=== PATIENT | male | born 1980 | race American Indian/Alaskan Native ===

== ENCOUNTER 2019-04-12 06:49 | Emergency (ER) | payer OTHER ==
[2019-04-12 06:56] VITALS: BP 151/89
--- NOTE | 2019-04-12 10:14 | Emergency Department Report ---
- General Chief Complaint: Sore Throat Stated Complaint: SORE THROAT COUGH NASAL CONGESTION Time Seen by Provider: 04/12/19 09:14 Source: patient Mode of arrival: Ambulatory Limitations: No Limitations - History of Present Illness Initial Comments: 38-year-old [place]ic female department complaining of cough congestion coryza and a Salter last for about 1 week not responding to TheraFlu, as, Lamine is due to travel to his home town this week for a wants to have his symptoms resolved. Reports a lot of coughing at night when he is lying down with yellow mucus. Production. No chest pain. He also is worried about a little rash forming around his lips which is been present for the last couple of weeks. MD Complaint: cough, sore throat, rhinorrhea, nasal congestion Severity: mild Quality: dull Consistency: constant Improves With: nothing Worsens With: nothing Associated Symptoms: chills, rhinorrhea, nasal congestion, sore throat, cough. denies: right sweats, epistaxis, hoarseness Treatments Prior to Arrival: none - Related Data Previous Rx's Medication Instructions Recorded Last Taken Type Azithromycin [Zithromax] 500 mg PO QDAY #3 tablet 04/12/19 Unknown Rx Ciclopirox 0.77% (Nf) [Loprox 1 applic TP BID #15 tube 04/12/19 Unknown Rx 0.77% (Nf)] guaiFENesin/CODEINE [Robitussin AC] 5 ml PO Q6H PRN #120 ml 04/12/19 Unknown Rx predniSONE [Deltasone] 50 mg PO QDAY #5 tab 04/12/19 Unknown Rx Allergies Allergy/AdvReac Type Severity Reaction Status Date / Time No Known Allergies Allergy Unverified 04/12/19 06:53 ED Review of Systems ROS: Stated complaint: SORE THROAT COUGH NASAL CONGESTION Other details as noted in HPI Comment: All other systems reviewed and negative ED Past Medical Hx - Past Medical History Previous Medical History?: No - Surgical History Past Surgical History?: No - Social History Smoking Status: Never Smoker Substance Use Type: None - Medications Home Medications: Home Medications Medication Instructions Recorded Confirmed Last Taken Type Azithromycin [Zithromax] 500 mg PO QDAY #3 tablet 04/12/19 Unknown Rx Ciclopirox 0.77% (Nf) [Loprox 1 applic TP BID #15 tube 04/12/19 Unknown Rx 0.77% (Nf)] guaiFENesin/CODEINE [Robitussin AC] 5 ml PO Q6H PRN #120 ml 04/12/19 Unknown Rx predniSONE [Deltasone] 50 mg PO QDAY #5 tab 04/12/19 Unknown Rx ED Physical Exam - General Limitations: No Limitations General appearance: alert, in no apparent distress - Head Head exam: Present: atraumatic, normocephalic - Eye Eye exam: Present: normal appearance, PERRL, EOMI Pupils: Present: normal accommodation - ENT ENT exam: Present: normal exam, mucous membranes moist, TM's normal bilaterally - Neck Neck exam: Present: normal inspection - Respiratory Respiratory exam: Present: normal lung sounds bilaterally. Absent: respiratory distress - Cardiovascular Cardiovascular Exam: Present: regular rate, normal rhythm. Absent: systolic murmur, diastolic murmur, rubs, gallop - GI/Abdominal GI/Abdominal exam: Present: soft, normal bowel sounds - Rectal Rectal exam: Present: deferred - Extremities Exam Extremities exam: Present: normal inspection, full ROM, normal capillary refill - Back Exam Back exam: Present: normal inspection. Absent: CVA tenderness (R), CVA tenderness (L) - Neurological Exam Neurological exam: Present: alert, oriented X3, CN II-XII intact, normal gait - Psychiatric Psychiatric exam: Present: normal affect, normal mood - Skin Skin exam: Present: warm, dry, intact, normal color. Absent: rash, cyanosis, diaphoretic, urticaria, petechiae, abrasion, ecchymosis ED Course Vital Signs 04/12/19 04/12/19 06:53 06:54 Temperature 98.2 F 98.2 F Pulse Rate 68 69 Respiratory 18 18 Rate Blood Pressure 151/89 151/89 O2 Sat by Pulse 96 97 Oximetry ED Medical Decision Making - Medical Decision Making 38-year-old -[place] male presents emergency department complaining of cough congestion and coryza worse with lying down. After examination symptoms appear to be associated with a evolving respiratory tract infection//bronchitis. There is no hemoptysis or chest pain. He has stable vital signs. And no signs of any urgent or emergent medical conditions. Also he is complaining about a rash to his lips which appears to be of a fungal origin.Does not appear at this time to be erythema multiforme, bullous, SJS, TEN; no evidence at this time to suggest RMSF or endocarditis or Lyme disease; patient looks well, nontoxic and is tolerating oral intake; no neurologic signs or symptoms; no headache or photophobia or neck pain; no ev of sepsis; question viral exanthema; afebrile; appropriate for initial o/p tx; d/w pt importance of f/u and pt agr ees/understands; told pt to return to nearest ER immediately for any worsening ssx incl but not limited to: fever, spreading rash, pain, sore throat, headache, dizziness, chest pain, trouble breathing, or any ssx concerning to the patient. I did d/w pt the aforementioned ddx as possibilities and pt understands to f/u even if better and to return to ER if un-changed/worse. Pt understands these instructions on d/c and is comfortable with discharge plan. - Differential Diagnosis bronchitis, pneumonia, allergic rhinitis, vitamin mineral deficiency Critical care attestation.: If time is entered above; I have spent that time in minutes in the direct care of this critically ill patient, excluding procedure time. ED Disposition Clinical Impression: Cough, Tinea, URI (upper respiratory infection) Disposition: [id number] TO HOME OR SELFCARE Is pt being admited?: No Does the pt Need Aspirin: No Condition: Stable Instructions: Cold Symptoms (ED), Acute Cough (ED), Tinea Corporis (ED) Prescriptions: predniSONE [Deltasone] 50 mg PO QDAY #5 tab Ciclopirox 0.77% (Nf) [Loprox 0.77% (Nf)] 1 applic TP BID #15 tube guaiFENesin/CODEINE [Robitussin AC] 5 ml PO Q6H PRN #120 ml PRN Reason: Cough Azithromycin [Zithromax] 500 mg PO QDAY #3 tablet Referrals: PRIMARY CARE, [Primary Care Provider] - 3-5 Days [facility] [Provider Group] - 3-5 Days Forms: Work/School Release Form(ED)
== END 2019-04-12 10:28 | disposition home or self-care (01) ==
LOC: ED 06:49
DX: J06.9 Acute upper respiratory infection, unspecified (principal); B35.9 Dermatophytosis, unspecified; Z79.899 Other long term (current) drug therapy
CPT/HCPCS: 87116; 87430; 99283

== ENCOUNTER 2019-04-15 02:58 | Emergency (ER) | payer OTHER ==
[2019-04-15 03:06] VITALS: BP 137/86
[2019-04-15] MEDS ORDERED: dexAMETHasone 20 MG/5 ML VIAL IM ONE (04:15)
[2019-04-15] MEDS ORDERED: LIDOCAINE-MPF (1%) 10 MG/1 ML VIAL 5 ML INFILTRATI ONE (04:15)
--- NOTE | 2019-04-15 04:25 | Emergency Department Report ---
ED General Adult HPI - General Chief complaint: Sore Throat Stated complaint: SORE THROAT Time Seen by Provider: 04/15/19 04:14 Source: patient Mode of arrival: Ambulatory Limitations: No Limitations - History of Present Illness Initial comments: mr. pike presents for ed for continued cough productive yellow/green now, sore throat, and noc fever. pt has hx of bronchitis, was tx for same last week with rx for azithromycin, states symptoms remain. Onset/Timin -: week(s) Severity scale (0 -10): 4 Quality: aching Consistency: constant Improves with: none Worsens with: other (cough) Associated Symptoms: cough, fever/chills Treatments Prior to Arrival: none - Related Data Previous Rx's Medication Instructions Recorded Last Taken Type Azithromycin [Zithromax] 500 mg PO QDAY #3 tablet 04/12/19 Unknown Rx Ciclopirox 0.77% (Nf) [Loprox 1 applic TP BID #15 tube 04/12/19 Unknown Rx 0.77% (Nf)] guaiFENesin/CODEINE [Robitussin AC] 5 ml PO Q6H PRN #120 ml 04/12/19 Unknown Rx predniSONE [Deltasone] 50 mg PO QDAY #5 tab 04/12/19 Unknown Rx ALBUTEROL Inhaler (OR & NICU) 2 puff IH Q6H PRN #1 each 04/15/19 Unknown Rx [ProAir HFA Inhaler] Benzonatate [Tessalon Perles] 100 mg PO Q8HR PRN #30 capsule 04/15/19 Unknown Rx Doxycycline Hyclate [Doxycycline 100 mg PO BID 10 Days #20 tab 04/15/19 Unknown Rx Hyclate TAB] Ibuprofen [Motrin 800 MG tab] 800 mg PO Q8HR PRN #30 tablet 04/15/19 Unknown Rx Allergies Allergy/AdvReac Type Severity Reaction Status Date / Time No Known Allergies Allergy Unverified 04/12/19 06:53 ED Review of Systems ROS: Stated complaint: SORE THROAT Other details as noted in HPI Constitutional: denies: chills, fever Eyes: denies: eye pain, eye discharge, vision change ENT: throat pain, congestion. denies: ear pain Respiratory: cough. denies: shortness of breath, wheezing Cardiovascular: denies: chest pain, palpitations Endocrine: no symptoms reported Gastrointestinal: denies: abdominal pain, nausea, diarrhea Genitourinary: denies: urgency, dysuria Musculoskeletal: denies: back pain, joint swelling, arthralgia Skin: denies: rash, lesions Neurological: denies: headache, weakness, paresthesias Psychiatric: denies: anxiety, depression Hematological/Lymphatic: denies: easy bleeding, easy bruising ED Past Medical Hx - Past Medical History Previous Medical History?: No - Surgical History Past Surgical History?: No - Social History Smoking Status: Current Every Day Smoker Substance Use Type: None - Medications Home Medications: Home Medications Medication Instructions Recorded Confirmed Last Taken Type Azithromycin [Zithromax] 500 mg PO QDAY #3 tablet 04/12/19 Unknown Rx Ciclopirox 0.77% (Nf) [Loprox 1 applic TP BID #15 tube 04/12/19 Unknown Rx 0.77% (Nf)] guaiFENesin/CODEINE [Robitussin AC] 5 ml PO Q6H PRN #120 ml 04/12/19 Unknown Rx predniSONE [Deltasone] 50 mg PO QDAY #5 tab 04/12/19 Unknown Rx ALBUTEROL Inhaler (OR & NICU) 2 puff IH Q6H PRN #1 each 04/15/19 Unknown Rx [ProAir HFA Inhaler] Benzonatate [Tessalon Perles] 100 mg PO Q8HR PRN #30 capsule 04/15/19 Unknown Rx Doxycycline Hyclate [Doxycycline 100 mg PO BID 10 Days #20 tab 04/15/19 Unknown Rx Hyclate TAB] Ibuprofen [Motrin 800 MG tab] 800 mg PO Q8HR PRN #30 tablet 04/15/19 Unknown Rx ED Physical Exam - General Limitations: No Limitations General appearance: alert, in no apparent distress - Head Head exam: Present: atraumatic, normocephalic - Eye Eye exam: Present: normal appearance - ENT ENT exam: Present: mucous membranes moist, TM's normal bilaterally, normal external ear exam - Expanded ENT Exam Expanded Throat exam: Positive: tonsillar erythema, other (uvula midline no exudate no lesion no stridor no wheezing ). Negative: tonsillomegaly, tonsillar exudate, R peritonsillar mass, L peritonsillar mass - Neck Neck exam: Present: normal inspection, full ROM. Absent: tenderness, meningismus, lymphadenopathy, thyromegaly - Respiratory Respiratory exam: Present: wheezes (mild exp wheezing ). Absent: rales, rhonchi, stridor, chest wall tenderness, accessory muscle use, decreased breath sounds, prolonged expiratory - Cardiovascular Cardiovascular Exam: Present: regular rate, normal rhythm, normal heart sounds. Absent: systolic murmur, diastolic murmur, rubs, gallop - GI/Abdominal GI/Abdominal exam: Present: soft, normal bowel sounds. Absent: distended, tenderness, guarding, rebound, rigid, bruit, hernia - Rectal Rectal exam: Present: deferred - Extremities Exam Extremities exam: Present: normal inspection, full ROM, normal capillary refill - Back Exam Back exam: Present: normal inspection, full ROM. Absent: tenderness, CVA tenderness (R), CVA tenderness (L), rash noted - Neurological Exam Neurological exam: Present: alert, oriented X3, CN II-XII intact, normal gait - Psychiatric Psychiatric exam: Present: normal affect, normal mood - Skin Skin exam: Present: warm, dry, intact, normal color. Absent: rash ED Course Vital Signs 04/15/19 03:04 Temperature 98.4 F Pulse Rate 67 Respiratory 20 Rate Blood Pressure 137/86 O2 Sat by Pulse 96 Oximetry ED Medical Decision Making - Medical Decision Making 38-year-old -[place] male presents emergency department complaining of cough congestion and coryza worse with lying down. symptoms ar consistent with bronchitis/ CAP. Given completion of azithromycin rx and worsening symptoms will tx with rocephin /decadron and dc with rx for ibuprofen, Tessalon, Doxycycline, albuterol inhaler, pt will follow up with pcp in 2-3 days and or return to ed if symptoms worsen. pt verbalized agreement and understanding of same. There is no hemoptysis or chest pain. He has stable vital signs. Critical care attestation.: If time is entered above; I have spent that time in minutes in the direct care of this critically ill patient, excluding procedure time. ED Disposition Clinical Impression: Bronchitis Pharyngitis Qualifiers: Pharyngitis/tonsillitis etiology: unspecified etiology Qualified Code(s): J02.9 - Acute pharyngitis, unspecified Disposition: TO HOME OR SELFCARE Is pt being admited?: No Does the pt Need Aspirin: No Condition: Stable Instructions: Acute Bronchitis (ED), Pharyngitis (ED) Prescriptions: Doxycycline Hyclate [Doxycycline Hyclate TAB] 100 mg PO BID 10 Days #20 tab Ibuprofen [Motrin 800 MG tab] 800 mg PO Q8HR PRN #30 tablet PRN Reason: pain fever ALBUTEROL Inhaler (OR & NICU) [ProAir HFA Inhaler] 2 puff IH Q6H PRN #1 each PRN Reason: Shortness Of Breath Benzonatate [Tessalon Perles] 100 mg PO Q8HR PRN #30 capsule PRN Reason: Cough Referrals: KAYDEN SUH MD [Staff Physician] - 3-5 Days Forms: Work/School Release Form(ED) Time of Disposition: 04:29
== END 2019-04-15 05:30 | disposition home or self-care (01) ==
LOC: ED 02:58
DX: J20.9 Acute bronchitis, unspecified (principal); F17.200 Nicotine dependence, unspecified, uncomplicated; Z79.899 Other long term (current) drug therapy; Z79.1 Long term (current) use of non-steroidal anti-inflammatories (NSAID)
CPT/HCPCS: 96372; 99282; J0696; J1100

== ENCOUNTER 2020-10-03 20:51 | Emergency (ER) | payer OTHER ==
[2020-10-03 21:43] VITALS: BP 148/97
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
== END 2020-10-04 00:35 | disposition home or self-care (01) ==
LOC: ED 20:51
DX: M54.5 Low back pain (principal); Z79.899 Other long term (current) drug therapy; V49.49XA Driver injured in collision with other motor vehicles in traffic accident, initial encounter; Y92.410 Unspecified street and highway as the place of occurrence of the external cause; Y93.89 Activity, other specified; Y99.8 Other external cause status
CPT/HCPCS: 99282

== ENCOUNTER 2021-02-21 20:21 | Emergency (ER) | payer OTHER ==
[2021-02-21 21:35] VITALS: BP 168/100
[2021-02-21] MEDS ORDERED: MECLIZINE 25 MG TAB PO ONE (21:57)
[2021-02-21] MEDS ORDERED: SODIUM CHLORIDE 0.9% 1000 ML 1,000 ML IV ONE (21:57)
[2021-02-21 22:30] LABS: Basophils % (Auto) 0.6 % (0.0-1.8); Eosinophils # (Auto) 0.3 K/mm3 (0.0-0.4); Eosinophils % (Auto) 4.2 % (0.0-4.3); Hematocrit 43.4 % (35.5-45.6); Hemoglobin 15.2 gm/dl (11.8-15.2); Lymphocytes # (Auto) 2.1 K/mm3 (1.2-5.4); Lymphocytes % (Auto) 27.1 % (13.4-35.0); Mean Corpuscular HGB Conc 35 % (32-34); Mean Corpuscular Volume 87 fl (84-94); Monocytes # (Auto) 0.6 K/mm3 (0.0-0.8); Monocytes % (Auto) 7.5 % (0.0-7.3); Platelet Count 159 K/mm3 (140-440); Red Blood Count 5.01 M/mm3 (3.65-5.03); Red Cell Distribution Width 13.7 % (13.2-15.2)
[2021-02-21 22:43] LABS: Alanine Aminotransferase 41 units/L (7-56); Albumin 4.7 g/dL (3.9-5); BUN/Creatinine Ratio 18; Blood Urea Nitrogen 16 mg/dL (9-20); Hemolysis Index 17
--- NOTE | 2021-02-22 00:26 | Emergency Department Report ---
ED Dizziness HPI - General Chief Complaint: Dizziness Stated Complaint: DIZZY Time Seen by Provider: 02/21/21 21:45 Source: patient Mode of arrival: Ambulatory Limitations: No Limitations - History of Present Illness Initial Comments: This is a 40-year-old male nontoxic, well nourished in appearance, no acute signs of distress presents to the ED with c/o of dizziness. Patient was diagnosed with vertigo about 2 years ago and stated symptoms were similar as today. Patient stated he was at work and became slight dizzy. Patient denies any headache or head trauma. Patient stated the dizziness is worsened with position change. Patient denies any numbness, tingling, headache, stiff neck, chest pain, shortness of breathe, numbness or tingling. Denies any visual changes or blurry vision. Denies any drug allergies. Patient otherwise denies any other complaints or symptoms. Patient stated has history of bradycardia. MD Complaint: dizziness, lightheadedness -: days(s) Timing: gradual onset Description: lightheadedness History of Same: Yes History of Trauma: No Severity: mild Improves With: rest Worsens With: position Associated Symptoms: denies other symptoms. denies: ataxia, chest pain, c onfusion, cough, diaphoresis, fever/chills, loss of appetite, malaise, rash, seizure, shortness of breath, syncope, weakness - Related Data Previous Rx's Medication Instructions Recorded Last Taken Type Azithromycin [Zithromax] 500 mg PO QDAY #3 tablet 04/12/19 Unknown Rx Ciclopirox 0.77% (Nf) [Loprox 1 applic TP BID #15 tube 04/12/19 Unknown Rx 0.77% (Nf)] guaiFENesin/CODEINE [Robitussin AC] 5 ml PO Q6H PRN #120 ml 04/12/19 Unknown Rx predniSONE [Deltasone] 50 mg PO QDAY #5 tab 04/12/19 Unknown Rx Albuterol Mdi (or & Nicu Only) 2 puff IH Q6H PRN #1 each 04/15/19 Unknown Rx [ProAir HFA Inhaler] Benzonatate [Tessalon Perles] 100 mg PO Q8HR PRN #30 capsule 04/15/19 Unknown Rx Doxycycline Hyclate [Doxycycline 100 mg PO BID 10 Days #20 tab 04/15/19 Unknown Rx Hyclate TAB] Ibuprofen [Motrin 800 MG tab] 800 mg PO Q8HR PRN #30 tablet 04/15/19 Unknown Rx Naproxen 500 mg PO BID PRN #20 tablet 10/04/20 Unknown Rx methocarbamoL [Methocarbamol] 750 - 1,500 mg PO TID PRN #24 10/04/20 Unknown Rx tablet Meclizine [Antivert] 12.5 mg PO Q12H PRN #6 tablet 02/22/21 Unknown Rx Allergies Allergy/AdvReac Type Severity Reaction Status Date / Time No Known Allergies Allergy Unverified 04/12/19 06:53 ED Review of Systems ROS: Stated complaint: DIZZY Other details as noted in HPI Comment: All other systems reviewed and negative Constitutional: denies: chills, fever Eyes: denies: eye pain, eye discharge, vision change ENT: denies: ear pain, throat pain Respiratory: denies: cough, shortness of breath, wheezing Cardiovascular: denies: chest pain, palpitations Endocrine: no symptoms reported Gastrointestinal: denies: abdominal pain, nausea, diarrhea Genitourinary: denies: urgency, dysuria Musculoskeletal: denies: back pain, joint swelling, arthralgia Skin: denies: rash, lesions Neurological: vertigo. denies: headache, weakness, numbness, paresthesias, confusion, abnormal gait Psychiatric: denies: anxiety, depression Hematological/Lymphatic: denies: easy bleeding, easy bruising ED Past Medical Hx - Past Medical History Previous Medical History?: No - Surgical History Past Surgical History?: No - Social History Smoking Status: Never Smoker Substance Use Type: None - Medications Home Medications: Home Medications Medication Instructions Recorded Confirmed Last Taken Type Azithromycin [Zithromax] 500 mg PO QDAY #3 tablet 04/12/19 Unknown Rx Ciclopirox 0.77% (Nf) [Loprox 1 applic TP BID #15 tube 04/12/19 Unknown Rx 0.77% (Nf)] guaiFENesin/CODEINE [Robitussin AC] 5 ml PO Q6H PRN #120 ml 04/12/19 Unknown Rx predniSONE [Deltasone] 50 mg PO QDAY #5 tab 04/12/19 Unknown Rx Albuterol Mdi (or & Nicu Only) 2 puff IH Q6H PRN #1 each 04/15/19 Unknown Rx [ProAir HFA Inhaler] Benzonatate [Tessalon Perles] 100 mg PO Q8HR PRN #30 capsule 04/15/19 Unknown Rx Doxycycline Hyclate [Doxycycline 100 mg PO BID 10 Days #20 tab 04/15/19 Unknown Rx Hyclate TAB] Ibuprofen [Motrin 800 MG tab] 800 mg PO Q8HR PRN #30 tablet 04/15/19 Unknown Rx Naproxen 500 mg PO BID PRN #20 tablet 10/04/20 Unknown Rx methocarbamoL [Methocarbamol] 750 - 1,500 mg PO TID PRN #24 10/04/20 Unknown Rx tablet Meclizine [Antivert] 12.5 mg PO Q12H PRN #6 tablet 02/22/21 Unknown Rx ED Physical Exam - General Limitations: No Limitations General appearance: alert, in no apparent distress - Head Head exam: Present: atraumatic, normocephalic - Eye Eye exam: Present: normal appearance, PERRL, EOMI - ENT ENT exam: Present: normal exam, normal orophraynx - Neck Neck exam: Present: normal inspection, full ROM. Absent: tenderness, meningismus, lymphadenopathy - Expanded Neck Exam Expanded Neck exam: Absent: tenderness, midline deformity, anterior neck swelling, thyroid mass, carotid bruit, tracheal deviation - Respiratory Respiratory exam: Present: normal lung sounds bilaterally. Absent: respiratory distress, wheezes, rales, rhonchi, stridor, chest wall tenderness, accessory muscle use, decreased breath sounds, prolonged expiratory - Cardiovascular Cardiovascular Exam: Present: normal rhythm, bradycardia, normal heart sounds. Absent: tachycardia, irregular rhythm, systolic murmur, diastolic murmur, rubs, gallop - Expanded Cardiovascular Exam Expanded Peripheral pulses: 2+: Carotid (R), Carotid (L) - Extremities Exam Extremities exam: Present: normal inspection, full ROM, normal capillary refill. Absent: tenderness - Back Exam Back exam: Present: normal inspection, full ROM. Absent: tenderness, CVA tenderness (R), CVA tenderness (L), muscle spasm, paraspinal tenderness, vertebral tenderness, rash noted - Neurological Exam Neurological exam: Present: alert, oriented X3, normal gait - Expanded Neurological Exam Expanded Patient oriented to: Present: person, place, time Cranial nerves: EOM's Intact: Normal, Facial Sensation: Normal Cerebellar function: Finger to Nose: Normal Upper motor neuron: Pronator Drift: Normal, Sensory Extinction: Normal Motor strength exam: RUE: 5, LUE: 5, RLE: 5, LLE: 5 Best Eye Response ([place]): (4) open spontaneously Best Motor Response ([place]): (6) obeys commands Best Verbal Response ([place]): (5) oriented [place] Total: 15 - Psychiatric Psychiatric exam: Present: normal affect, normal mood - Skin Skin exam: Present: warm, dry, intact, normal color. Absent: rash ED Course Vital Signs 02/21/21 21:33 Temperature 98.5 F Pulse Rate 59 L Respiratory 18 Rate Blood Pressure 168/100 O2 Sat by Pulse 97 Oximetry - Reevaluation(s) Reevaluation #1: 02/22/21 00:25 Patient is speaking in full sentences with no signs of distress noted. ED Medical Decision Making - Lab Data Result diagrams: 02/21/21 22:00 02/21/21 22:00 Lab Results 02/21/21 02/21/21 Range/Units 22:00 22:00 WBC 7.8 (4.5-11.0) K/mm3 RBC 5.01 (3.65-5.03) M/mm3 Hgb 15.2 (11.8-15.2) gm/dl Hct 43.4 (35.5-45.6) % MCV 87 (84-94) fl MCH 30 (28-32) pg MCHC 35 H (32-34) % RDW 13.7 (13.2-15.2) % Plt Count 159 (140-440) K/mm3 Lymph % (Auto) 27.1 (13.4-35.0) % [place] % (Auto) 7.5 H (0.0-7.3) % Eos % (Auto) 4.2 (0.0-4.3) % Baso % (Auto) 0.6 (0.0-1.8) % Lymph # (Auto) 2.1 (1.2-5.4) K/mm3 [place] # (Auto) 0.6 (0.0-0.8) K/mm3 Eos # (Auto) 0.3 (0.0-0.4) K/mm3 Baso # (Auto) 0.0 (0.0-0.1) K/mm3 Seg Neutrophils % 60.6 (40.0-70.0) % Seg Neutrophils # 4.8 (1.8-7.7) K/mm3 Sodium 137 (137-145) mmol/L Potassium 4.6 (3.6-5.0) mmol/L Chloride 102.0 (98-107) mmol/L Carbon Dioxide 25 (22-30) mmol/L Anion Gap 15 mmol/L BUN 16 (9-20) mg/dL Creatinine 0.9 (0.8-1.3) mg/dL Estimated GFR > 60 ml/min BUN/Creatinine Ratio 18 % Glucose 98 (75-100) mg/dL Calcium 10.0 (8.4-10.2) mg/dL Total Bilirubin 0.40 (0.1-1.2) mg/dL AST 54 H (5-40) units/L ALT 41 (7-56) units/L Alkaline Phosphatase 65 (35-129) units/L Total Protein 7.5 (6.3-8.2) g/dL Albumin 4.7 (3.9-5) g/dL Albumin/Globulin Ratio 1.7 % - EKG Data 02/22/21 01:10 Sinus bradycardia at [address] or T wave abnormalities. Reviewed and signed by MD. - Medical Decision Making This is a 40-year-old male that presents with dizziness. Patient is stable and was examined by me. EKG is normal sinus rhythm with no ST abnormalities. Labs are unremarkable. Urine obtained. Orthostatic vital signs obtained and within normal limits. Patient received 1 L of normal saline and Atrovent which she stated his symptoms of dizziness has subsided and resolved. Patient is neurologically stable. Patient was instructed to Follow-up with a primary care doctor in 3-5 days or if symptoms worsen and continue return to emergency room as soon as possible. At time of discharge, the patient does not seem toxic or ill in appearance. No acute signs of distress noted. Patient agrees to discharge treatment plan of care. No further questions noted by the patient. Critical care attestation.: If time is entered above; I have spent that time in minutes in the direct care of this critically ill patient, excluding procedure time. ED Disposition Clinical Impression: Dizziness Disposition: HOME / SELF CARE / HOMELESS Is pt being admited?: No Does the pt Need Aspirin: No Condition: Stable Instructions: Dizziness, [id number] Additional Instructions: Follow-up with a primary care doctor in 3-5 days or if symptoms worsen and continue return to emergency room as soon as possible. Prescriptions: Meclizine [Antivert] 12.5 mg PO Q12H PRN #6 tablet PRN Reason: Vertigo Referrals: PRIMARY CAREMD [Referring] - 3-5 Days ADEEL PENA MD [Staff Physician] - 3-5 Days Forms: Work/School Release Form(ED) Time of Disposition: 00:57
--- NOTE | 2021-02-25 14:44 | Electrocardiograph Report ---
[facility] Test Date: 2021-02-22 Test Time: 01:06:09 Pat Name: CHALINO CASEY Department: Room: Gender: M Payroll Processor: JONN : 1980 Requested By: JO BARKER Order Number: [id number] Reading MD: Jeffrey Watters Measurements Intervals [place] Rate: 48 P: 66 WI: 157 QRS: -27 QRSD: 102 T: -21 QT: 450 QTc: 402 Interpretive Statements Sinus bradycardia Nonspecific T abnormalities, inferior leads No previous ECG available for comparison Electronically Signed On 02-25-2021 14:43:24 EDT by Jeffrey Watters
== END 2021-02-22 01:00 | disposition home or self-care (01) ==
LOC: ED 20:21
DX: R42 Dizziness and giddiness (principal); Z79.899 Other long term (current) drug therapy
CPT/HCPCS: 36415; 80053; 85025; 93005; 96360; 99283; J7030

== ENCOUNTER 2021-03-05 04:55 | Emergency (ER) | payer OTHER ==
[2021-03-05] MEDS ORDERED: SODIUM CHLORIDE 0.9% 1000 ML 1,000 ML IV ONE (06:47)
[2021-03-05] MEDS ORDERED: ONDANSETRON 4 MG/2 ML INJ IV ONE (06:47)
--- NOTE | 2021-03-05 06:54 | Emergency Department Report ---
ED Dizziness HPI - General Chief Complaint: Dizziness Stated Complaint: VERTIGO Time Seen by Provider: 03/05/21 06:21 Source: patient Mode of arrival: Ambulatory Limitations: No Limitations - History of Present Illness Initial Comments: Patient presents with dizziness. He is actually been seen here before because of dizziness. Was diagnosed with vertigo and given meclizine. That really does not seem to be helping. He has had ongoing problems with dizziness since being seen here. He initially thought it could be something related to his neck. He went to his chiropractor. They tried to do adjustment and manipulation. That failed to provide any symptomatic improvement. His dizziness began before going to the chiropractor. Patient states that his blood pressure was elevated here. His blood pressure has been elevated at work. His blood pressures been elevated at the chiropractor's office. He is concerned that this could be related to blood pressure management. He does not have a diagnosis of hypertension. He has not been eating much salt. Patient states that he has no blurry vision. He has been having scotomata and floaters. He denies numbness or tingling in the arms or legs. He just very nervous about what is going on. He states that he is very healthy otherwise and this is creating problems for him. - Related Data Previous Rx's Medication Instructions Recorded Last Taken Type Ciclopirox 0.77% (Nf) [Loprox 1 applic TP BID #15 tube 04/12/19 Unknown Rx 0.77% (Nf)] predniSONE [Deltasone] 50 mg PO QDAY #5 tab 04/12/19 Unknown Rx Albuterol Mdi (or & Nicu Only) 2 puff IH Q6H PRN #1 each 04/15/19 Unknown Rx [ProAir HFA Inhaler] Benzonatate [Tessalon Perles] 100 mg PO Q8HR PRN #30 capsule 04/15/19 Unknown Rx Ibuprofen [Motrin 800 MG tab] 800 mg PO Q8HR PRN #30 tablet 04/15/19 Unknown Rx Naproxen 500 mg PO BID PRN #20 tablet 10/04/20 Unknown Rx methocarbamoL [Methocarbamol] 750 - 1,500 mg PO TID PRN #24 10/04/20 Unknown Rx tablet Meclizine [Antivert] 12.5 mg PO Q12H PRN #6 tablet 02/22/21 Unknown Rx Lisinopril/Hydrochlorothiazide 1 each PO DAILY #30 tablet 03/05/21 Unknown Rx [Zestoretic 10-12.5 mg Tablet] Meclizine [Antivert] 25 mg PO TID PRN #30 tablet 03/05/21 Unknown Rx Allergies Allergy/AdvReac Type Severity Reaction Status Date / Time No Known Allergies Allergy Verified 03/05/21 05:15 ED Review of Systems ROS: Stated complaint: VERTIGO Other details as noted in HPI Comment: All other systems reviewed and negative Constitutional: denies: fever Eyes: as per HPI ENT: denies: throat pain Respiratory: denies: cough Cardiovascular: denies: chest pain Endocrine: denies: unexplained weight loss Gastrointestinal: nausea. denies: abdominal pain, vomiting Genitourinary: denies: dysuria Musculoskeletal: denies: back pain Skin: denies: rash Neurological: as per HPI Hematological/Lymphatic: denies: easy bruising ED Past Medical Hx - Past Medical History Hx Hypertension: No Hx Seizures: Yes - Surgical History Past Surgical History?: Yes Additional Surgical History: Vasectomy - Family History Family history: hypertension - Social History Smoking Status: Never Smoker Substance Use Type: None - Medications Home Medications: Home Medications Medication Instructions Recorded Confirmed Last Taken Type Ciclopirox 0.77% (Nf) [Loprox 1 applic TP BID #15 tube 04/12/19 Unknown Rx 0.77% (Nf)] predniSONE [Deltasone] 50 mg PO QDAY #5 tab 04/12/19 Unknown Rx Albuterol Mdi (or & Nicu Only) 2 puff IH Q6H PRN #1 each 04/15/19 Unknown Rx [ProAir HFA Inhaler] Benzonatate [Tessalon Perles] 100 mg PO Q8HR PRN #30 capsule 04/15/19 Unknown Rx Ibuprofen [Motrin 800 MG tab] 800 mg PO Q8HR PRN #30 tablet 04/15/19 Unknown Rx Naproxen 500 mg PO BID PRN #20 tablet 10/04/20 Unknown Rx methocarbamoL [Methocarbamol] 750 - 1,500 mg PO TID PRN #24 10/04/20 Unknown Rx tablet Meclizine [Antivert] 12.5 mg PO Q12H PRN #6 tablet 02/22/21 Unknown Rx Lisinopril/Hydrochlorothiazide 1 each PO DAILY #30 tablet 03/05/21 Unknown Rx [Zestoretic 10-12.5 mg Tablet] Meclizine [Antivert] 25 mg PO TID PRN #30 tablet 03/05/21 Unknown Rx ED Physical Exam - General Limitations: No Limitations, Other (Pulse ox is noted and normal.) General appearance: alert, in no apparent distress - Head Head exam: Present: atraumatic, normocephalic, normal inspection - Eye Eye exam: Present: normal appearance, PERRL, EOMI. Absent: scleral icterus - ENT ENT exam: Present: normal exam, normal orophraynx, TM's normal bilaterally, normal external ear exam - Neck Neck exam: Present: normal inspection. Absent: meningismus - Respiratory Respiratory exam: Present: normal lung sounds bilaterally. Absent: respiratory distress - Cardiovascular Cardiovascular Exam: Present: regular rate, normal rhythm - GI/Abdominal GI/Abdominal exam: Present: soft. Absent: tenderness - Extremities Exam Extremities exam: Present: normal capillary refill - Back Exam Back exam: Absent: CVA tenderness (R), CVA tenderness (L) - Neurological Exam Neurological exam: Present: alert, oriented X3, CN II-XII intact, normal gait, reflexes normal, other (NIH score of 0. There is no pronator drift or dysdiadochokinesia.). Absent: motor sensory deficit - Psychiatric Psychiatric exam: Present: anxious - Skin Skin exam: Present: warm, dry ED Course Vital Signs 03/05/21 07:43 Temperature 97.9 F Pulse Rate 51 L Respiratory 18 Rate Blood Pressure 148/86 [Left] O2 Sat by Pulse 98 Oximetry - Reevaluation(s) Reevaluation #1: 03/05/21 06:[address] was ordered. Old records reviewed. Reevaluation #2: 03/05/21 08:01 Work-up was complete. Patient was discharged. ED Medical Decision Making - Lab Data Result diagrams: 03/05/21 07:04 03/05/21 07:04 - Medical Decision Making Patient presented with dizziness. This seems to be consistent with vertigo. There is no CT evidence of tumor or stroke. There is no bleed. He does not have a headache suggestive of an aneurysm. There does not appear to be any me tabolic derangement. He has not hyperglycemic. There is no focal neurologic symptoms suggestive of stroke. This has been an ongoing issue. I do not believe this represents any type of vertebral dissection. Critical care attestation.: If time is entered above; I have spent that time in minutes in the direct care of this critically ill patient, excluding procedure time. ED Disposition Clinical Impression: Vertigo, Elevated blood pressure reading Disposition: HOME / SELF CARE / HOMELESS Is pt being admited?: No Condition: Stable Instructions: Preventing Hypertension, Managing Your Hypertension, Dizziness, [id number] Additional Instructions: Push fluids. Return for problems. Avoid salt. Follow-up with a regular doctor for further blood pressure checks and management. Check your blood pressure at home. Prescriptions: Meclizine [Antivert] 25 mg PO TID PRN #30 tablet PRN Reason: Vertigo Lisinopril/Hydrochlorothiazide [Zestoretic 10-12.5 mg Tablet] 1 each PO DAILY #30 tablet Referrals: PRIMARY CAREMD [Referring] - 3-5 Days JOSE CORREA MD [Staff Physician] - 3-5 Days
[2021-03-05 07:14] LABS: Hematocrit 45.6 % (35.5-45.6); Hemoglobin 15.7 gm/dl (11.8-15.2); Mean Corpuscular HGB Conc 35 % (32-34); Mean Corpuscular Volume 86 fl (84-94); Platelet Count 146 K/mm3 (140-440); Red Blood Count 5.34 M/mm3 (3.65-5.03); Red Cell Distribution Width 13.6 % (13.2-15.2)
[2021-03-05 07:33] LABS: BUN/Creatinine Ratio 11; Blood Urea Nitrogen 11 mg/dL (9-20); Calcium 9.8 mg/dL (8.4-10.2); Hemolysis Index 14
--- NOTE | 2021-03-05 07:44 | Cat Scan Report ---
CT HEAD WITHOUT CONTRAST INDICATION / CLINICAL INFORMATION: Intractable dizziness. TECHNIQUE: Axial imaging performed from the skull apex through the skull base without the use of cont rast. Sagittal and coronal reformatted images. All CT scans at this location are performed using CT dose reduction for ALARA by means of automated exposure control. COMPARISON: None available. FINDINGS: CEREBRAL PARENCHYMA: No significant abnormality. No acute territorial infarct. HEMORRHAGE: None. EXTRA-AXIAL SPACES: Normal in size and morphology for the patient's age. VENTRICULAR SYSTEM: Normal in size and morphology for the patient's age. MIDLINE SHIFT OR HERNIATION: None. CEREBELLUM / BRAINSTEM: No significant abnormality. CALVARIUM: No significant abnormality. ORBITS: Normal as visualized. PARANASAL SINUSES / MASTOID AIR CELLS: Normal as visualized. SOFT TISSUES of HEAD: No significant abnormality. ADDITIONAL FINDINGS: None. IMPRESSION: No acute intracranial abnormality. Signer Name: Juan Osorio Jr, MD Signed: 03/05/2021 7:39 AM Workstation Name: [id number]
[2021-03-05 10:36] VITALS: BP 149/95
== END 2021-03-05 10:36 | disposition home or self-care (01) ==
LOC: ED 04:55
DX: R42 Dizziness and giddiness (principal); R03.0 Elevated blood-pressure reading, without diagnosis of hypertension; R56.9 Unspecified convulsions; Z98.890 Other specified postprocedural states
CPT/HCPCS: 36415; 70450; 80048; 85027; 96361; 96374; 99284; J2405; J7030